=== PATIENT | male | born 2000 ===

== ENCOUNTER 2021-08-26 11:27 | Emergency (ER) | payer OTHER ==
[~2021-08-26] VITALS: Ht 177.8 cm; Wt 61.2 kg
[2021-08-26] MEDS ORDERED: PRED20 PO (13:48)
== END 2021-08-26 13:52 | disposition home or self-care (01) ==
LOC: ER 11:27
DX: L23.7 Allergic contact dermatitis due to plants, except food (principal)
CPT/HCPCS: J0702; J3301